=== PATIENT | male | born 1980 | race Caucasian/White ===

== ENCOUNTER 2018-10-03 14:07 | Emergency (ER) | payer SELFPAY ==
[~2018-10-03] VITALS: Ht 165.1 cm; Wt 75.3 kg
[2018-10-03 14:24] VITALS: Ht 165.1 cm; Wt 75.3 kg
[2018-10-03 15:26] LABS: UA SPECIFIC GRAVITY 1.025 (1.005-1.035); microscopic required? YES; urine erythrocyte 1+ (NEGATIVE)
[2018-10-03 15:31] LABS: BASOPHIL % 0.3 % (0-2); PLATELET COUNT 169 x10^3mcL (130-400); RED CELL DISTRIBUTION WIDTH 13.1 % (11.5-14.5)
[2018-10-03 15:36] LABS: AMPHETAMINE QUAL UR NONE DETECTED (See below)
[2018-10-03 15:41] LABS: CALCIUM 8.8 mg/dL (8.5-10.1); CARBON DIOXIDE 21.4 mmol/L (21-32); CHLORIDE SERUM 100 mmol/L (98-107); CREATININE SERUM 1.4 mg/dL (0.7-1.3); GFR1 > 60 mL/min; GLUCOSE SERUM 109 mg/dL (74-106); POTASSIUM SERUM 3.6 mmol/L (3.5-5.1); SODIUM SERUM 136 mmol/L (136-145)
[2018-10-03 15:45] LABS: ALKALINE PHOSPHATASE 66 U/L (46-116); ALT/SGPT 69 U/L (16-63); AST/SGOT 47 U/L (15-37); BILIRUBIN TOTAL 0.56 mg/dL (0.20-1.00); TOTAL PROTEIN, SERUM 8.1 g/dL (6.4-8.2)
[2018-10-03 19:40] LABS: TOTAL PROTEIN CSF 27.6 mg/dL (15-45)
[2018-10-03 20:08] LABS: APPEARANCE CSF CLEAR; COLOR CSF COLORLESS
[2018-10-03 20:09] LABS: RBC CSF 86 /cumm (0); WBC CSF 3 /cumm (0-5)
[2018-10-03 20:19] LABS: APPEARANCE CSF CLEAR; COLOR CSF COLORLESS; WBC CSF 1 /cumm (0-5)
[2018-10-03 20:20] LABS: RBC CSF 6 /cumm (0)
[2018-10-03 21:05] VITALS: BP 109/67
== END 2018-10-03 21:05 | disposition home or self-care (01) ==
LOC: ED 14:07
PROVIDERS: Emergency Medicine
DX: R51 Headache (principal); R50.9 Fever, unspecified; Z88.0 Allergy status to penicillin
CPT/HCPCS: J1885; J2270; J2405; J7030; Q0092